=== PATIENT | female | born 1980 | race Caucasian/White ===

== ENCOUNTER 2017-02-09 19:39 | Emergency (ER) | payer OTHER ==
[2017-02-09 20:02] VITALS: BP 120/64; PULSE 72; RESP 18; TEMP 98.4; O2SAT 95
[2017-02-09] MEDS ORDERED: IBUPROFEN 600 MG TAB PO ONE (20:03)
[2017-02-09] MEDS ORDERED: IBUPROFEN 200 MG TAB PO ONE (20:05)
--- NOTE | 2017-02-09 20:27 | EDPHY ---
H & P Chief Complaint Nursing Narrative: playing volleyball today and felt a "tear" in left calf. Has pain, can bear weight. HPI/ROS: HPI CHIEF COMPLAINT: Left calf pain HISTORY OF PRESENT ILLNESS: this patient very pleasant 36-year-old female no significant medical or surgical history does not take any daily medications presents to the urgent care with left calf pain. Patient tells me approximately 45 minutes ago she was playing volleyball she immediately felt tearing pain to left posterior calf. She now has pain she is able to ambulate and walk on however causes her severe pain. She does not have a footdrop. pain is currently 4/10 Past Medical History: No significant medical history Past Surgical History: no significant surgical history Social History: denies daily use of drugs alcohol tobacco products Family History: noncontributory ROS REVIEW OF SYSTEMS: A comprehensive 10 point review of systems is otherwise negative aside from elements mentioned in the history of present illness. Exam Constitutional triage nursing summary reviewed, vital signs reviewed, awake/ alert. Eyes normal conjunctivae and sclera, EOMI, PERRLA. HENT normal inspection, atraumatic, moist mucus membranes, no epistaxis, neck supple/ no meningismus, no raccoon eyes. Respiratory clear to auscultation bilaterally, normal breath sounds, no respiratory distress, no wheezing. Cardiovascular rate normal, regular rhythm, no murmur, no edema, distal pulses normal. Gastrointestinal soft, non-tender, no rebound, no guarding, normal bowel sounds, no distension, no pulsatile mass. Genitourinary no CVA tenderness. Musculoskeletal left lower extremity: tender palpation over the left posterior calf medial belly of the gastrocnemius, distally neurovascular intact , Achilles intact, negative Homans sign, no evidence of Achilles rupture, does have exquisite tenderness and swelling to left posterior calf consistent with a muscle strain/pull.no midline vertebral tenderness, full range of motion, no calf swelling, no tenderness of extremities, no meningismus, good pulses, neurovascularly intact. Skin pink, warm, & dry, no rash, skin atraumatic. Neurologic awake, alert and oriented x 3, AAOx3, moves all 4 extremities equally, motor intact, sensory intact, CN II-XII intact, normal cerebellar, normal vision, normal speech. Psychiatric normal mood/affect. Heme/Lymph/Immune no lymphadenopathy. Differential Diagnosis: Includes but is not limited to in a particular order left calf strain, left musculoskeletal pull, left gastrocnemius tear medial belly of the gastrocnemius tear, tibia fracture Medical Decision Making: plan for this patient patient had an x-ray of the left tib-fib to rule out bony abnormality, she will be placed on crutches, Jamin wrap, ice pack, ibuprofen and Pender. She understands she is to follow up with Orthopedics tomorrow call for an appointment. She has obvious tear to the left calf gastrocnemius muscle medial aspect. Nonweightbearing. I have also given her strict return precautions on compartment syndrome she understands return to the urgent care or emergency room if she develops severe pain, numbness tingling , discoloration of her toes severe pain questions or concerns or abnormal swelling. Ice her leg keep it elevated ibuprofen for pain Pender for pain, crutches nonweightbearing for orthopedic follow-up. ED x-ray left lower extremity tib/fib: negative for acute fracture. Image interpreted myself. Source: Patient - Personal History LMP (Females 10-55): 22-28 Days Ago - Medical/Surgical History Hx Asthma: No Hx Chronic Respiratory Disease: No Hx Diabetes: No Hx Cardiac Disease: No Hx Renal Disease: No Hx Cirrhosis: No Hx Alcoholism: No Hx HIV/AIDS: No Hx Splenectomy or Spleen Trauma: No Other PMH: denies - Social History Smoking Status: Never smoked Constitutional: Initial Vital Signs Temperature (C) 36.9 C 02/09/17 19:59 Heart Rate 72 02/09/17 19:59 Respiratory Rate 18 02/09/17 19:59 Blood Pressure 120/64 02/09/17 19:59 O2 Sat (%) 95 02/09/17 19:59 Allergies/Adverse Reactions: No Known Allergies Allergy (Unverified 02/09/17 19:58) Home Medications: Medication Instructions Recorded Hydrocodone/APAP 5/325 [Pender 1 - 2 tab PO Q4H PRN #20 tab 02/09/17 5/325] Ibuprofen [Motrin (*)] 800 mg PO Q6-8PRN #20 tab 02/09/17 Medical Decision Making - Data Points Medications Given: Discontinued Medications Ibuprofen (Motrin) 600 mg PO EDNOW ONE Stop: 02/09/17 20:06 Last Admin: 02/09/17 20:32 Dose: 600 mg Departure - Departure Disposition: Home, Routine, Self-Care Clinical Impression: Injury of calf Condition: Good Instructions: Muscle Cramp (ED), Leg Cramps (ED), Muscle Spasm (ED), Musculoskeletal Pain (ED) Additional Instructions: 1. Please use crutches do not bear weight. 2. Take ibuprofen for anti-inflammatory pain medicine, narcotic pain med. for severe pain 3. please ice your leg. 4. Please follow up with Orthopedics outpatient. Call their for an appointment tomorrow morning. Referrals: Elgin Page MD [Medical Doctor] - As per Instructions Prescriptions: Hydrocodone/APAP 5/325 [Pender 5/325] 1 - 2 tab PO Q4H PRN #20 tab PRN Reason: Pain, Moderate Ibuprofen [Motrin (*)] 800 mg PO Q6-8PRN #20 tab
== END 2017-02-09 20:45 | disposition home or self-care (01) ==
LOC: CED 19:39
DX: S89.92XA Unspecified injury of left lower leg, initial encounter (principal); Y93.68 Activity, volleyball (beach) (court); Y92.39 Other specified sports and athletic area as the place of occurrence of the external cause; Y99.8 Other external cause status; X50.0XXA Overexertion from strenuous movement or load, initial encounter
CPT/HCPCS: 73590-PO; G0463-PO